=== PATIENT | male | born 2005 | race Hispanic/Latino ===

== ENCOUNTER 2025-06-13 13:05 | Emergency (ER) | payer SELFPAY | END 2025-06-13 16:22 | disposition home or self-care (01) | LOC: ERS 13:05 | DX: S12.500A Unspecified displaced fracture of sixth cervical vertebra, initial encounter for closed fracture (principal); V43.92XA Unspecified car occupant injured in collision with other type car in traffic accident, initial encounter | CPT/HCPCS: 70450; 71045; 72125; 96374 ==